=== PATIENT | male | born 1990 | race Two or more races ===

== ENCOUNTER 2022-08-03 13:06 | Emergency (ER) | payer SELFPAY ==
[~2022-08-03] VITALS: Ht 175.3 cm; Wt 116.0 kg
[2022-08-03 13:28] VITALS: BP 162/89
[2022-08-03] MEDS ORDERED: KETOROLAC TROMETH 60MG/2ML VIAL IM ONE (16:15)
[2022-08-03] MEDS ORDERED: IBUP800T26 PO (16:28)
[2022-08-03] MEDS ORDERED: AMOX-277 PO (16:28)
== END 2022-08-03 16:49 | disposition home or self-care (01) ==
LOC: ER 13:06
DX: S61.217A Laceration without foreign body of left little finger without damage to nail, initial encounter (principal); W31.89XA Contact with other specified machinery, initial encounter; Y93.89 Activity, other specified; Y92.89 Other specified places as the place of occurrence of the external cause; Y99.8 Other external cause status
CPT/HCPCS: 12001; 96372; 99283; J1885